=== PATIENT | female | born 1960 | race Two or more races ===

== ENCOUNTER 2024-11-18 12:00 | Day surgery (SDC) | payer OTHER ==
[2024-11-11 08:43] VITALS: BP 141/79
[2024-11-11 08:51] LABS: URINE APPEARANCE Clear; URINE BILIRRUBIN Negative (NEGATIVE); URINE BLOOD Negative; URINE COLOR Yellow; URINE GLUCOSE Negative (NEGATIVE); URINE KETONE Negative (NEGATIVE); URINE LEUKOCYTE Negative; URINE NITRATE Negative; URINE PROTEIN Negative (NEGATIVE); URINE UROBILINOGEN 0.2 E.U./dl
[2024-11-11 08:52] LABS: BASO % 0.8 % (0.1-1.2); EOS # 0.44 (0.04-0.54); EOS % 6.8 % (0.7-7.0); LYMPH # 1.77 (1.18-3.74); LYMPH % 27.4 % (19.3-53.1); MEAN PLATELET VOLUME 10.40 fl (9.4-12.4); MONO # 0.57 (0.24-0.82); MONO % 8.8 % (4.7-12.5); NEUT # 3.60 (1.56-6.13); NEUT % 55.9 % (34.0-71.1); RED CELL DISTRIBUTION WIDTH 14.7 % (11.6-14.4)
[2024-11-11 08:55] LABS: URINE RBC 8.5 uL (0.0-20.8)
[2024-11-11 08:59] LABS: URINE BACTERIA 2.3 uL (0.0-1933); URINE CAST 0.00 uL (0.0-1.40); URINE EPITHELIAL CELLS 0.6 uL (0.0-38.8); URINE WBC 0.9 uL (0.0-23.2)
[2024-11-11 09:10] LABS: INR 0.96
[2024-11-11 09:36] LABS: ALT/SGPT 16.0 U/L (12-78); AST/SGOT 15.0 U/L (15-37); BILIRUBIN TOTAL 0.33 mg/dL (0.3-1.2); BUN CREA RATIO 17.0 (7.0-25.0); CREATININE SERUM 0.77 mg/dL (0.55-1.02); GFR 75.0; GLOBULINA 3.8 G/DL (2.4-3.5); GLUCOSE FASTING 97.0 mg/dL (65-100); OSMOLALITY SERUM 283.0 MOSM/KG (275-295)
[~2024-11-18] VITALS: Ht 154.9 cm; Wt 68.0 kg
[~2024-11-18 12:00] MED LIST: AVAPRO150 MG PO; CEFAZOLIN SODIUM 1,000 MG VIAL ONE; CLONAZEPAM1 MG PO; CRESTOR40 MG; SERTRALINE20 MG/1 ML; SYNTHROID100 MCG PO; SYNTHROID88 MCG PO
== END 2024-11-18 13:35 | disposition home or self-care (01) ==
LOC: CIR.AMB 12:00
PROVIDERS: ATTEND Orthopaedic Surgery Hand Surgery
DX: D21.12 Benign neoplasm of connective and other soft tissue of left upper limb, including shoulder (principal); R22.32 Localized swelling, mass and lump, left upper limb; M65.842 Other synovitis and tenosynovitis, left hand; Z88.2 Allergy status to sulfonamides